=== PATIENT | female | born 1965 | race Caucasian/White ===

== ENCOUNTER 2017-02-07 14:57 | Emergency (ER) | payer OTHER ==
[~2017-02-07] VITALS: Ht 177.8 cm; Wt 92.5 kg
[~2017-02-07 14:57] MED LIST: BENZONATATE200 MG PO; CYCLOBENZAPRINE10 M1 PO; IBUPROFEN600 M1 PO; MEDROL DOSEPAK1 PAC PO; PERCOCET 5-3251 EACH PO; ZITHROMAX Z-PA250 M1 PO
[2017-02-07 15:10] VITALS: BP 145/100
--- NOTE | 2017-02-07 15:54 | RADIOLOGY REPORT ---
EXAMINATION: XR RIBS, LEFT CLINICAL INFORMATION: Left rib pain after fall. COMPARISON: None TECHNIQUE: Chest with left ribs, total of 5 views FINDINGS: Lungs are well expanded. There is mild, linear opacity of atelectasis in the left base. No airspace opacification, pneumothorax or pleural effusion. Cardiac silhouette is normal in size. The mediastinal and hilar contours are normal. There is an acute, nondisplaced fracture of the left anterolateral eighth rib. IMPRESSION: 1. Acute, nondisplaced fracture of the left anterolateral eighth rib. 2. No pulmonary contusion, pneumothorax or pleural effusion. 3. Mild atelectasis in the left lower lobe.
[2017-02-07] MEDS ORDERED: SPIRONOLACTONE50 M1 PO (16:05)
[2017-02-07] MEDS ORDERED: PROAIR HFA8.5 GM INH (16:06)
[2017-02-07] MEDS ORDERED: HYDROCHLOROTHIA50 M1 PO (16:06)
[2017-02-07] MEDS ORDERED: ALPRAZOLAM1 M2 PO (16:06)
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
[2017-02-07] MEDS ORDERED: PERCOCET 5-3251 EACH PO (16:14)
== END 2017-02-07 16:08 ==
LOC: ERH 14:57
DX: S22.32XA Fracture of one rib, left side, initial encounter for closed fracture (principal); W19.XXXA Unspecified fall, initial encounter; Y93.9 Activity, unspecified; Y92.511 Restaurant or cafe as the place of occurrence of the external cause
CPT/HCPCS: 71100-LT